=== PATIENT | female | born 1955 | race Caucasian/White ===

== ENCOUNTER 2017-05-07 16:41 | Outpatient (CLI) | payer MEDICAID ==
[2011-04-01 06:58] VITALS: BMI 39.7
== END 2017-05-07 23:59 | disposition home or self-care (01) ==
LOC: D.MAMMO 16:41
DX: Z12.31 Encounter for screening mammogram for malignant neoplasm of breast (principal)

== ENCOUNTER 2017-11-16 11:20 | Emergency (ER) | payer MEDICAID ==
[2011-04-01 06:58] VITALS: BMI 39.7
[2017-11-16 12:13] LABS: BASOPHILS 0.4 % (0-2); EOSINOPHILS 7.9 % (0-7); HEMATOCRIT 39.8 % (36.0-48.0); HEMOGLOBIN 13.2 g/dL (12-16); IMMATURE GRANULOCYTES 0.1 % (0-5); LYMPHOCYTES 25.9 % (15-50); MCH 30.1 pg (26.0-34.0); MCHC 33.2 g/dL (31.0-37.0); MCV 90.7 fL (80.0-100.0); MEAN PLATELET VOLUME 10.1 fL (7.4-10.4); MONOCYTES 9.1 % (2-11); NEUTROPHILS 56.6 % (40-80); PLATELET COUNT 307 10x3/uL (130-400); RBC 4.39 10x6/uL (4.00-5.40); RDW 13.7 % (11.5-14.5); WBC 6.7 10x3/uL (4.8-10.8)
[2017-11-16 12:15] LABS: INR 0.99 (0.85-1.17); PROTIME 12.7 SECONDS (11.6-15.0)
[2017-11-16 12:24] LABS: ALBUMIN 3.8 g/dL (3.4-5.0); ALKALINE PHOSPHATASE 90 U/L (46-116); ALT (SGPT) 45 U/L (10-68); BILIRUBIN - TOTAL 0.14 mg/dL (0.2-1.3); CALC OSMOLALITY 281 mosm/kg (275-300); CALCIUM 8.9 mg/dL (8.5-10.1); CARBON DIOXIDE 25.3 mmol/L (21.0-32.0); CHLORIDE - SERUM 106 mmol/L (98-107); CREATININE - SERUM 0.9 mg/dL (0.6-1.3); GLUCOSE 98 mg/dL (74-106); POTASSIUM - SERUM 4.5 mmol/L (3.5-5.1); PROTEIN - SERUM 7.3 g/dL (6.4-8.2); SODIUM 141 mmol/L (136-145); UREA NITROGEN 14 mg/dL (7-18); eGFR NON AFRICAN AMERICAN 68 mL/min (90-120)
[2017-11-16 12:31] LABS: APPEARANCE HAZY (CLEAR); BACTERIA FEW /hpf (NONE SEEN); BILIRUBIN NEGATIVE (NEGATIVE); COLOR YELLOW (YELLOW); GLUCOSE NEGATIVE (NEGATIVE); KETONE NEGATIVE (NEGATIVE); NITRITE NEGATIVE (NEGATIVE); PROTEIN NEGATIVE (NEGATIVE); RED CELLS - URINE 0-5 /hpf (0-5); SPECIFIC GRAVITY 1.015 (1.005-1.020)
[2017-11-16 12:53] LABS: AMYLASE - SERUM 61 U/L (25-115); C-REACTIVE PROTEIN 0.3 mg/dL (0.0-0.9); CREATINE KINASE 241 UL (21-215); LIPASE 204 U/L (73-393)
[2017-11-16 12:55] LABS: TROPONIN-I < 0.017 ng/mL (0.000-0.060)
[2017-11-16 12:56] LABS: CKMB 1.7 U/L (0.0-3.6)
== END 2017-11-16 15:06 | disposition home or self-care (01) ==
LOC: D.ER 11:20
PROVIDERS: Family Medicine; Nurse Practitioner Family
DX: R10.9 Unspecified abdominal pain (principal); N39.0 Urinary tract infection, site not specified; R30.0 Dysuria; K21.9 Gastro-esophageal reflux disease without esophagitis

== ENCOUNTER 2019-04-18 08:00 | Outpatient (CLI) | payer BC ==
[2011-04-01 06:58] VITALS: BMI 39.7
== END 2019-04-18 23:59 | disposition home or self-care (01) ==
LOC: D.MAMMO 08:00
PROVIDERS: ATTEND Family Medicine
DX: N64.4 Mastodynia (principal)